=== PATIENT | female | born 1955 | race Two or more races ===

== ENCOUNTER 2021-04-06 14:43 | Outpatient (CLI) | payer OTHER | END 2021-04-06 23:59 | disposition home or self-care (01) | LOC: LAB 14:43 | PROVIDERS: ATTEND Specialist | DX: Z01.812 Encounter for preprocedural laboratory examination (principal); Z20.822 Contact with and (suspected) exposure to COVID-19 | CPT/HCPCS: C9803; U0003 ==

== ENCOUNTER 2021-04-11 08:47 | Day surgery (SDC) | payer OTHER ==
[~2021-04-11 08:47] MED LIST: ANESTHESIA TRAY IN PYXIS 1 EA TRAY MC ONE; LIDOCAINE HCL/PF 1% 30 ML SDV ONE; methylPREDNISolone ACETATE 80 MG/ML VIAL ONE
[2021-04-11] MEDS ORDERED: FENTANYL PF 100MCG/2ML AMPUL ONE (09:29)
== END 2021-04-11 13:00 | disposition home or self-care (01) ==
LOC: DS 08:47
PROVIDERS: ATTEND Specialist
DX: S83.241A Other tear of medial meniscus, current injury, right knee, initial encounter (principal); S83.281A Other tear of lateral meniscus, current injury, right knee, initial encounter; M94.261 Chondromalacia, right knee; X58.XXXA Exposure to other specified factors, initial encounter; Y93.89 Activity, other specified; Y92.89 Other specified places as the place of occurrence of the external cause; Y99.8 Other external cause status; Z88.2 Allergy status to sulfonamides; Z88.8 Allergy status to other drugs, medicaments and biological substances; Z98.890 Other specified postprocedural states; Z79.899 Other long term (current) drug therapy
CPT/HCPCS: 29881; A4217; A6253; J0690; J2405; J2704; J3010; J3490; J1040